=== PATIENT | male | born 1960 | race Caucasian/White ===

== ENCOUNTER 2017-02-20 13:11 | Outpatient (CLI) | payer BC ==
--- NOTE | 2017-02-20 14:47 | RAD ---
EXAM: TWO VIEWS LUMBAR SPINE: HISTORY: Spondylolisthesis of the lumbar region. Status post surgery. Two-week followup. COMPARISON: 01/04/17. FINDINGS: Posterior midline skin cherrie are noted. Redemonstration of bilateral transpedicular screw at L3, L4, L5, and S1. The right S1 screw appears to have been repositioned. Left S1 screw is presumed to be unchanged. Minimal perihardware lucency is noted around the left and right S1 screws. Stable l aminectomy defects. Stable disk prosthesis at L3-L4 and L4-L5. Redemonstration of anterolisthesis of L5 upon S1 measuring 1.0 cm. There are degenerative changes in the thoracolumbar junction. IMPRESSION: 1. Postsurgical changes as above. 2. Stable grade II anterolisthesis of L5 upon S1. POS: [facility]
== END 2017-02-20 13:12 | disposition home or self-care (01) ==
LOC: TBSIIMAG 13:11
PROVIDERS: ATTEND Physician Assistant
DX: M43.17 Spondylolisthesis, lumbosacral region (principal); Z98.890 Other specified postprocedural states
CPT/HCPCS: 72100

== ENCOUNTER 2017-04-04 14:00 | Outpatient (CLI) | payer BC ==
--- NOTE | 2017-04-04 14:36 | RAD ---
2 VIEWS LUMBAR SPINE: Date: 04/04/17 COMPARISON: 02/20/17. CORRELATION: CT lumbar spine dated 01/24/17. HISTORY: Lumbar disc degeneration. FINDINGS: There are bilateral transpedicular screws at L3, L4, L5, and S1. There is lucency involving bilatera l transpedicular screws at S1. There is persistent anterolisthesis of L5 upon S1 of approximately 1. 2 cm. Disc prosthesis at L3-L4 and L4-L5 is noted. Severe loss of disc space height and sclerosis at L5-S1. Laminectomy defects at L4 and L5 noted. IMPRESSION: 1. Stable fusion change. 2. Bilateral perihardware lucency at S1. POS: [facility]
== END 2017-04-04 14:01 | disposition home or self-care (01) ==
LOC: TBSIIMAG 14:00
PROVIDERS: ATTEND Neurological Surgery
DX: M51.36 Other intervertebral disc degeneration, lumbar region (principal); Z98.1 Arthrodesis status
CPT/HCPCS: 72100

== ENCOUNTER 2017-05-17 15:42 | Outpatient (CLI) | payer BC ==
--- NOTE | 2017-05-17 16:10 | RAD ---
EXAM: TWO VIEWS LUMBAR SPINE 05/17/17 COMPARISON: 04/04/17. HISTORY: Followup surgery. FINDINGS: Two views of the lumbar spine redemonstrate stable laminectomy defect at L4 and L5. Stable disc prost hesis at L3-L4, L4-L5. Stable bilateral transpedicular screws at L3, L4, L5 and S1. There is no perih ardware lucency in the screws at L3, L4 and L5. There is stable perihardware lucency involving the sc rews at S1. There is persistent anterolisthesis of L5 upon S1, currently measuring approximately 1.1 cm (previously measuring 1.2 cm). IMPRESSION: No significant change. POS: [facility]
== END 2017-05-17 15:43 | disposition home or self-care (01) ==
LOC: TBSIIMAG 15:42
PROVIDERS: ATTEND Neurological Surgery
DX: M48.061 Spinal stenosis, lumbar region without neurogenic claudication (principal)
CPT/HCPCS: 72100

== ENCOUNTER 2017-07-26 13:57 | Outpatient (CLI) | payer BC ==
--- NOTE | 2017-07-26 14:13 | RAD ---
TWO VIEWS LUMBAR SPINE: Comparison: 05-17-17 History: Follow up from lumbar spine surgery. FINDINGS: Five lumbar type vertebral bodies. Bilateral transpedicular screws at L3, L4, L5 and S1. Disc prosthe sis at L3-4, and L4-5. Stable anterolisthesis of L5 upon S1 (1 cm). Stable bilateral perihardware hillary ency at S1. Stable mild loss of vertebral body height at L1. IMPRESSION: 1. Stable post-surgical change. 2. Stable perihardware lucency involving bilateral transpedicular screws at S1. 3. Stable anterolisthesis of L5 upon S1. POS: [facility]
== END 2017-07-26 13:58 | disposition home or self-care (01) ==
LOC: TBSIIMAG 13:57
PROVIDERS: ATTEND Neurological Surgery
DX: M51.36 Other intervertebral disc degeneration, lumbar region (principal); M43.17 Spondylolisthesis, lumbosacral region; Z98.890 Other specified postprocedural states
CPT/HCPCS: 72100

== ENCOUNTER 2018-02-20 08:42 | Day surgery (SDC) | payer BC ==
[2018-02-19 12:55] VITALS: BMI 33.5
[2018-02-20 10:15] VITALS: BP 138/80; TEMP 97.8
[2018-02-20] MEDS ORDERED: Iopamidol-M 200 41% 20 ML VIAL ONE (11:00)
--- NOTE | 2018-02-20 14:45 | CT ---
CT LUMBAR SPINE WITH CONTRAST: (CT lumbar myelogram) DATE: 02/20/18. HISTORY: A 57-year-old male with low back pain and bilateral lumbar radiculopathy, M54.16. COMPARISON: 01/24/17 CT lumbar myelogram. FINDINGS: There are 5 lumbar-type vertebrae. There is old anterior wedge compression deformity of L1 with appr oximately 20-35% loss of height anteriorly. There are bilateral pedicle screws at L3, L4, L5, and S1 . There are midline laminectomy defects from L3-L4 through L5-S1. There is no evidence of hardware loosening around the screws. T12-L1: Tiny central disk protrusion. No high-grade neural foraminal stenosis or high-grade central spinal stenosis. No interval change. L1-2: Minimal degenerative retrolisthesis of L1 on L2. Mild disk bulge. Conus medullaris terminate s at this level. No high-grade central stenosis or high-grade neural foraminal stenosis. L2-3: A slightly greater degree of degenerative retrolisthesis of L2 on L3 compared to the level sup erior to this. This, together with minimal disk bulge, and moderate ligamentum flavum thickening, re sults in moderate to severe bilateral neural foraminal stenosis and moderate central spinal canal rand nosis. The effacement of the neural foraminal fat is questionably minimally worse than on the previo us CT. L3: The medial aspect of the left L3 pedicle screw traverses the left lateral aspect of the spinal c anal. This is unchanged since the previous CT. L3-4: Interbody cage graft material. No ankylosis between the end plates. No significant disk spac e narrowing. The midline laminectomy defect results in generous caliber of the spinal canal. No rafa ral foraminal stenosis. L4: The bilateral pedicle screws do not traverse the spinal canal. Generous caliber of the spinal c anal and thecal sac. L4-5: Posterior to the wide, decompressive midline laminectomy defect, the bilateral posterior eleme nt onlay bone graft fusion bone chips have grown such that they propagate more posteriorly and medial ly into the bilateral paraspinal musculature and the postsurgical scar tissue there. Thecal sac is g enerous in caliber due to the laminectomy defect. The bony neural foramina are also generous in naty agata. Interbody cage graft material in the disk space. No ankylosis between the end plates. L5-S1: Mild grade I anterolisthesis of L5 on S1 is unchanged. Severe vacuum disk phenomenon. Moder ate disk space narrowing. Thecal sac caliber is generous as a result of the laminectomy defect. The posterior growth propagation of the bilateral onlay bone graft chip fusion continues through this le susan. Although there is no high-grade bony neural foraminal stenosis, the neural foraminal fat is sig nificantly partially effaced bilaterally. It is difficult to determine whether this is due to postsu rgical scar tissue or diffuse disk bulge material, or perhaps a combination of both. No interval karthikeyan nge in the appearance of the neural foramina. IMPRESSION: 1. Status post laminectomies and posterior lumbar interbody fusion at mid lumbar spine through lumbo sacral junction. 2. Interval development of large heterotopic ossifications in the posterior paraspinal spaces, appar ently propagating posteriorly from the bilateral onlay bone chips. 3. High-grade bilateral neural foraminal stenosis at L2-3. 4. Effacement of bilateral neural foraminal fat at L5-S1 perhaps due to a combination of disk bulge and scar tissue. 5. Advanced degenerative disk changes at L5-S1. POS: [facility]
--- NOTE | 2018-02-20 15:18 | RAD ---
MYELOGRAM LUMBAR: DATE: 02/20/18. HISTORY: A 57-year-old male with low back pain and bilateral lumbar radiculopathy. TECHNIQUE: Signed informed consent obtained. Patient placed prone on fluoroscopy table. The skin of the lower back was prepared and draped in the usual sterile fashion. A 25-gauge needle was used to apply buffe red Lidocaine superficially and deeply. A 22-gauge spinal needle was advanced at the L4-5 level. Up on clear brisk return of clear CSF, a total of 10 mL of Isovue-M 200 was injected intrathecally under brief, intermittent fluoroscopy. The needle was removed. The patient tolerated the procedure well. No complications. The patient was taken to CT for CT myelogram. IMPRESSION: 1. Successful lumbar myelogram. 2. See separate report of the CT lumbar myelogram. POS: [facility]
== END 2018-02-20 12:10 | disposition home or self-care (01) ==
LOC: RAD 08:42
PROVIDERS: ATTEND Neurological Surgery
DX: M51.17 Intervertebral disc disorders with radiculopathy, lumbosacral region (principal); M99.83 Other biomechanical lesions of lumbar region
CPT/HCPCS: 62304; 72132

== ENCOUNTER 2018-03-21 13:43 | Outpatient (CLI) | payer BC ==
--- NOTE | 2018-03-21 15:46 | RAD ---
LUMBAR SPINE FOUR VIEWS: Comparison: 07-26-17 History: Spondylolisthesis of the lumbar spine. Low back pain. FINDINGS: AP, lateral, flexion, and extension views of the lumbosacral spine were performed. The patient is sta tus post posterior fusion of L3 through S1 with bilateral pedicle screws. There is grade I to II anterolisthesis of L5 on S1, unchanged. Disc spacers are seen in the L3-4 and L4-5 disc spaces. Alignment is unchanged in flexion and extension. No perihardware lucency is identif ied. IMPRESSION: Post-operative changes of the lumbar spine as above, with spondylolisthesis of L5 on S1. This is unch anged with bending. POS: [facility]
== END 2018-03-21 13:44 | disposition home or self-care (01) ==
LOC: TBSIIMAG 13:43
PROVIDERS: ATTEND Specialist
DX: M43.16 Spondylolisthesis, lumbar region (principal); M47.816 Spondylosis without myelopathy or radiculopathy, lumbar region; M43.17 Spondylolisthesis, lumbosacral region
CPT/HCPCS: 72100; 72110

== ENCOUNTER 2018-06-02 12:14 | Emergency (ER) | payer BC ==
--- NOTE | 2018-06-02 14:07 | RAD ---
FRONTAL RADIOGRAPH CHEST: DATE: 06/02/2018. COMPARISON: 02/12/2015. HISTORY: Fall, trauma, pain. FINDINGS: Rotation to the right and portable technique limit detailed assessment. Heart and mediastinal contou rs are grossly unchanged when compared to a prior chest radiograph performed 02/12/2015 at [facility]. No pneumothorax, pleural fluid, lobar consolidation or alveolar edema. IMPRESSION: No acute findings. POS: [facility]
== END 2018-06-02 13:57 | disposition home or self-care (01) ==
LOC: ERS 12:14
DX: S20.211A Contusion of right front wall of thorax, initial encounter (principal); E11.9 Type 2 diabetes mellitus without complications; E78.5 Hyperlipidemia, unspecified; I10 Essential (primary) hypertension; W18.12XA Fall from or off toilet with subsequent striking against object, initial encounter
CPT/HCPCS: 71045

== ENCOUNTER 2018-08-09 10:53 | Day surgery (SDC) | payer BC ==
[2018-08-08 08:42] VITALS: BMI 33.2
[2018-08-09] MEDS ORDERED: Bupivacaine HCl 0.5%/Epinephrine 1:200,000/PF 30 ml Vial ONE (11:57)
[2018-08-09] MEDS ORDERED: Propofol 500 MG/50 ML VIAL ONE (12:05)
[2018-08-09] MEDS ORDERED: Fentanyl 100 MCG/2 ML VIAL ONE ×2 (12:05→14:10)
[2018-08-09] MEDS ORDERED: CEFAZOLIN 1 GM VIAL ONE (12:14)
[2018-08-09] MEDS ORDERED: Sodium Chloride 0.9% 100 ML ONE (12:14)
[2018-08-09 12:21] LABS: Anion Gap 12 mmol/L (10-20); BUN (Urea Nitrogen) 17 mg/dL (8.4-25.7); Calc. Creatinine Clearance 169 mL/min (70-130); Calcium 9.5 mg/dL (7.8-10.44); Carbon Dioxide 29 mmol/L (22-29); Chloride 101 mmol/L (98-107); Estimated GFR-MDRD Greater than 90; Glucose 124 mg/dL (70-105); Potassium 4.4 mmol/L (3.5-5.1); Sodium 138 mmol/L (136-145)
[2018-08-09] MEDS ORDERED: PROPOFOL 20 ML ONE ×2 (13:57→14:23)
--- NOTE | 2018-08-09 18:00 | RAD ---
THORACIC SPINE ONE VIEW: 08/09/18 HISTORY: Pain stimulator. COMPARISON: None. FINDINGS: There is a single spot fluoroscopic image which demonstrates a stimulator lead projecting over the sp ine. IMPRESSION: Fluoroscopy for surgical use. POS: [facility]
--- NOTE | 2018-08-10 03:53 | OP ---
DATE OF PROCEDURE: 08/09/2018 DIAGNOSES: 1. Post-laminectomy syndrome. 2. Chronic pain syndrome. 3. Lumbar radiculopathy. PROCEDURES PERFORMED: 1. Spinal cord stimulator generator implant. 2. Spinal cord stimulator lead implant x2. 3. Fluoroscopy. 4. Programming. ESTIMATED BLOOD LOSS: 5 mL. SUMMARY OF PROCEDURE: The patient was taken to the procedure room and placed prone on the procedure room table. A time-out was performed using ChloraPrep. The back was prepped, and sterile drapes were applied. We located the interspace of T12-L1 under fluoroscopy and anesthetized the skin over this with 0.5% Marcaine with epinephrine. We made a vertical incision and blunt dissected this down to fascia. We then used a supplied 14-gauge Touhy needle and advanced it in a paramedian technique to engage in the ligament of T12-L1. Loss of resistance to air was performed to gain access to the epidural space. There was negative aspiration for heme or CSF. We then threaded an 8-contact lead up the midline dorsal epidural space under continuous fluoroscopy . We placed a contralateral lead in the exact same fashion using the exact same technique on the other side to place two parallel electrodes. Stimulation was performed with the patient awake and the patient noted paresthesia in all pain areas. Nikolski were then removed taking care not to move the leads. Anchors were placed over the leads and clicked down to anchor them to the lead. These were then sutured to the fascia using 2-0 silk suture x2. The skin above the buttock was anesthetized with Marcaine 0.5% with epinephrine, and incision was made with a scalpel and blunt dissected down to Vamshi fascia. We then dissected this inferiorly and superiorly to create a pocket. A tunneling device was used to create a tunnel between the two pockets. The leads were placed through the tunneling device and advanced to the battery pocket. These were connected to the battery and torqued down. Impedances were checked, which were all good. The battery was placed in the pocket. We approximated both incisions using 2-0 Vicryl suture in simple interrupted fashion. We then approximated the skin layer using a 3-0 Vicryl repeat suture in a subcuticular stitch. We then occluded the wound with Dermabond and placed a sterile 4 x 4 dressing over it with tape on it. Once this was dried, the patient was taken to PACU in a stable condition without any apparent complications noted at this time. Job ID: [id number]
--- NOTE | 2018-08-10 16:42 | EKG ---
Test Reason : PREOP Blood Pressure : / mmHG Vent. Rate : 064 BPM Atrial Rate : 064 BPM P-R Int : 172 ms QRS Dur : 078 ms QT Int : 408 ms P-R-T Axes : -02 -12 017 degrees QTc Int : 420 ms Normal sinus rhythm Normal ECG When compared with ECG of 31-JAN-2017 09:56, No significant change was found Confirmed by DR. Román DE ([id number]) on 08/10/2018 4:42:42 PM Referred By: SRI Confirmed By:DR. Román DE
== END 2018-08-09 15:35 | disposition home or self-care (01) ==
LOC: SDC 10:53
PROVIDERS: ATTEND Specialist
PROC: 00HU3MZ Insertion of Neurostimulator Lead into Spinal Canal, Percutaneous Approach (ICD-10-PCS; principal; 2018-08-09)
PROC: 0JH70DZ Insertion of Multiple Array Stimulator Generator into Back Subcutaneous Tissue and Fascia, Open Approach (ICD-10-PCS; principal; 2018-08-09)
DX: M96.1 Postlaminectomy syndrome, not elsewhere classified (principal); G89.4 Chronic pain syndrome; M51.16 Intervertebral disc disorders with radiculopathy, lumbar region; M48.062 Spinal stenosis, lumbar region with neurogenic claudication; M43.16 Spondylolisthesis, lumbar region; I10 Essential (primary) hypertension; G47.33 Obstructive sleep apnea (adult) (pediatric); E78.5 Hyperlipidemia, unspecified; K21.9 Gastro-esophageal reflux disease without esophagitis; E11.9 Type 2 diabetes mellitus without complications; Z79.84 Long term (current) use of oral hypoglycemic drugs; Z79.899 Other long term (current) drug therapy; Z88.1 Allergy status to other antibiotic agents; Z91.048 Other nonmedicinal substance allergy status
CPT/HCPCS: 72020; 76000; 80048; 93005; 93010; C1767; J0670; J0690; J2704; J3010; J7050

== ENCOUNTER 2019-08-21 07:57 | Outpatient (CLI) | payer BC ==
--- NOTE | 2019-08-21 10:27 | CT ---
EXAM: CT Thoracic Spine WO Con PROVIDED CLINICAL HISTORY: Back pain COMPARISON: None FINDINGS: Sagittal thoracic alignment appears normal. Vertebral body heights appear preserved. Multilevel disc space narrowing and endplate degenerative change, most conspicuously from T7-8 through T12-L1. Vertebral body heights appear preserved. No concerning lytic or blastic lesions are seen. Dorsal colu mn stimulator device is noted, the tips of which terminate at the dorsal aspect of the spinal canal at the level of the inferior endplate of T6. There is no significant central canal or foraminal narrowing apparent from T1-2 through T7-8. At T8-9, there is mild bilateral foraminal narrowing on the basis of facet arthritis and costovertebr al joint hypertrophy. There is no significant central canal stenosis apparent. At T9-10, there is a broad-based disc osteophyte complex which effaces the ventral subarachnoid space . There is no significant left foraminal narrowing apparent. There is at least moderate right foraminal narrowing due to disc bulge and facet arthrosis. At T10-11, there is moderate foraminal narrowing on the basis of facet arthritis. No significant cent ral canal or right foraminal narrowing apparent. At T11-12, there is moderate left foraminal narrowing on the basis of facet arthritis. No significant right foraminal narrowing apparent. There is a gas containing left subarticular disc herniation with effacement of the left ventrolateral spinal canal. At T12-L1, there is no significant central canal or foraminal narrowing apparent. IMPRESSION: Multilevel thoracic degenerative change as described.
--- NOTE | 2019-08-21 10:38 | CT ---
EXAM: CT Lumbar Spine WO Con PROVIDED CLINICAL HISTORY: Spondylolisthesis COMPARISON: CT myelogram 02/20/2018 FINDINGS: 5 lumbar vertebral bodies are again assumed. Slight retrolisthesis of L2 on L3 is redemonstrated. Sag ittal lumbar alignment appears otherwise normal. Vertebral body heights appear preserved. No concerning lytic or blastic lesions are evident. Postoperative changes appear stable, including bilat eral pedicle screws and vertical interconnecting rods spanning L3-S1 with intervening intervertebral disc devices at L3-4 and L4-5. There is no evidence for hardware loosening or migratio n. The visualized extraspinal soft tissues appear unremarkable with the exception of vascular calcification. At L1-2, there is disc space height loss and vacuum disc phenomena with broad-based disc bulge. There is no significant central canal or foraminal narrowing apparent. At L2-3, vacuum disc phenomenon and loss of intervertebral disc space height are now noted. Broad-bas ed disc bulge and ligamentum flavum hypertrophy produce potential for at least moderate central canal narrowing. There is severe bilateral foraminal stenosis. At L3-4, there is no significant central canal or foraminal narrowing apparent. At L4-5, there is no significant central canal or foraminal narrowing apparent. At L5-S1, vacuum disc phenomenon is noted. Endplate degenerative changes and a broad-based disc bulge are seen. Moderate-severe right foraminal narrowing. No significant central canal or left foraminal narrowing apparent. IMPRESSION: 1. Stable postoperative changes involving the mid to lower lumbar spine. 2. Interval progression of disc degenerative change at L2-3 with development of severe bilateral fora eduardo narrowing and at least moderate central canal stenosis.
== END 2019-08-21 07:58 | disposition home or self-care (01) ==
LOC: MRI 07:57
PROVIDERS: ATTEND Orthopaedic Surgery
DX: M43.16 Spondylolisthesis, lumbar region (principal); M51.36 Other intervertebral disc degeneration, lumbar region; M48.061 Spinal stenosis, lumbar region without neurogenic claudication
CPT/HCPCS: 72128; 72131

== ENCOUNTER 2019-09-17 08:06 | Outpatient (CLI) | payer BC ==
--- NOTE | 2019-09-17 10:53 | MRI ---
MRI CERVICAL SPINE WITHOUT CONTRAST: HISTORY: Spondylolisthesis. Pain.. COMPARISON: 02/17/2014. FINDINGS: Limited evaluation on multiple sequences due to motion degradation. Appropriate T1 marrow signal intensity of the cervical vertebrae. Cervical spine vertebral body heigh ts are maintained. There is no fracture. Appropriate T1 marrow signal intensity of the cervical vertebrae. No significant STIR hyperintensity to suggest vertebral body edema or ligamentous injury. Spondylolisthesis: C2-C3: 2.4 mm of anterolisthesis. C3-C4: 2.6 mm of anterolisthesis. C6-C7: 1.7 mm of retrolisthesis. Visualized brain parenchyma, cervicomedullary junction, cervical cord and the upper thoracic cord hav e a normal size and signal intensity. C2-C3: Disc desiccation. No significant posterior disc abnormality. No significant central canal sten osis or significant neural foraminal narrowing. C3-C4: Disc desiccation. Minimal central disc herniation. No significant central canal stenosis or si gnificant neural foraminal narrowing. C4-C5: Disk desiccation. No significant posterior disc abnormality. No significant central canal sten osis or significant neural foraminal narrowing. C5-C6: Desiccation with moderate loss of disc space height. Disc-osteophyte complex does cause mass e ffect upon the thecal sac. There is deformity the cervical cord. Moderate central canal stenosis. No cord signal abnormality. Mild right and moderate left foraminal narrowing due to uncovertebral hyp ertrophy. C6-C7: Desiccation with moderate loss of disc space height. Broad-based disc-osteophyte complex with a small right paracentral component. Mild central canal stenosis. Mild bilateral foraminal narrowing due to uncovertebral hypertrophy. C7-T1: Desiccation with mild loss of disc space height. Broad-based disc bulge, ligament flavum thick ening and facet hypertrophy result in mild to moderate central canal stenosis. Moderate to severe right and moderate left foraminal narrowing. IMPRESSION: 1. Minimal disc desiccation at C2-C3, C3-C4 and C4-C5 without significant loss of disc space height o r significant central canal stenosis. 2. Moderate central canal stenosis at C5-C6, mild central canal stenosis at C6-C7 and mild to moderat e central canal stenosis at C7-T1. There is associated significant neural foraminal narrowing as detailed above. Transcribed Date/Time: 09/17/2019 12:52 PM
--- NOTE | 2019-09-17 11:08 | MRI ---
THORACIC SPINE MRI WITHOUT CONTRAST: HISTORY: Spinal listhesis of the lumbar region. COMPARISON: None. CORRELATION: Thoracic spine CT 08/21/2019. FINDINGS: Appropriate T1 marrow signal intensity of the thoracic vertebrae. Thoracic spine vertebral body heigh t is maintained. There is no fracture. There are type II Modic changes at T8-T9, T9-T10, T10-T11. Minimal Schmorl's nodes along the endplates of these aforementioned levels is identified. The heart does appear to be enlarged. There appears to be circumferential mucosal thickening in the v isualized mid thoracic esophagus, incompletely evaluated. Visualized lung parenchyma has a normal appearance. Appropriate signal intensity of the visualized solid organs. Limited evaluation of the central spinal canal due to metallic susceptibility artifact involving the mid thoracic spine from dorsal column stimulator. Visualized thoracic cord has a normal size and signal intensity. No cord expansion. No cord malacia. Metallic susceptibly artifact does limit evaluation of the central spinal canal. Neural foramina: T8-T9: Moderate right neural foraminal narrowing. Mild left neural foraminal narrowing. T9-T10: Moderate bilateral neural foraminal narrowing. T10-T11: Patent right neural foramen. Severe left neural foraminal narrowing. T11-T12: Mild right neural foraminal narrowing. Severe left neural foraminal narrowing throughout the remaining thoracic spine, the neural foramina appear to be patent. T1-T2 through T7-T8: No evidence of significant central canal stenosis. T8-T9: Desiccation with severe loss of disc space height. Broad-based disc bulge, facet hypertrophy m ay result in at least mild central canal stenosis, predominantly based upon the sagittal images. Metallic susceptibly artifact limits evaluation on the axial images. T9-T10: Disc desiccation with moderate loss of disc space height and osteophyte formation results in at least moderate to severe central canal stenosis. Metallic susceptibility artifact limits evaluation. T10-T11: Disc desiccation with moderate to severe loss of disc space height. Broad-based disc bulge r esults in moderate to severe central canal stenosis.. T11-T12: Disc desiccation with at least mild central canal stenosis. IMPRESSION: Limited evaluation of the central spinal canal due to metallic susceptibility artifact from dorsal co lumn stimulator. There does appear to be significant central canal stenosis in the mid thoracic spine. The degree of stenosis appears be accentuated due to metallic susceptibly artifact. Correlatio n is made with CT performed 08/21/2019 does not demonstrate a significant central canal stenosis. However, there does appear to be neural foraminal narrowing which is better demonstrated on the previ ous CT. Transcribed Date/Time: 09/17/2019 12:59 PM
--- NOTE | 2019-09-17 11:09 | MRI ---
MRI LUMBAR SPINE NONCONTRAST: DATE: 09/17/2019 HISTORY: 59-year-old male with low back pain and ICD-10: "M 13.16 spondylolisthesis of lumbar region" COMPARISON: 01/08/2015 FINDINGS: Distended urinary bladder. Mild anterior wedge compression loss of height of L1, old, but occurred so metime after the prior MRI of 2014. Conus medullaris terminates at upper L2 level. In addition to the previously demonstrated bilateral pedicle screws at L4 and L5, there are now addit ional pedicle screws at L3 and S1 bilaterally. New since prior study, dorsal column stimulator leads enter the spinal canal between the spinous proc esses of T12-L1, and ascend. The magnetic susceptibility artifact created by the leads results in poor evaluation of the contents of the spinal canal superior to this level. T12-L1:No high-grade central or high-grade right neural foraminal stenosis identified, but there is p oor visualization of left neural foramen due to artifact. L1-2:Mild disc bulge. Minimal retrolisthesis of L1 on L2. New mild disc space narrowing. No high-grad e central stenosis or high-grade neural foraminal stenosis. L2-3:New moderate retrolisthesis of L2 on L3. Minimal disc space narrowing. The retrolisthesis causes a new finding of moderate central spinal canal stenosis, severe right neural foraminal stenosis, and moderate to severe left neural foraminal stenosis. L3-4:New interbody cage at the disc space. Possible revision of previous midline laminectomy results in even wider caliber of spinal canal and thecal sac now, generous caliber. No high-grade bony neural foraminal stenosis.. L4-5:Again noted is the midline decompressive laminectomy defect, resulting in generous caliber of sp inal canal and thecal sac. New interbody cage. New mild disc space narrowing. No high-grade bony neural foraminal stenosis identified. L5-S1:New grade 1 anterolisthesis of L5 on S1. New moderate disc space narrowing. Degenerative endpla te changes. Small central disc extrusion with superior migration at midline to the pedicle level of L5. Worsening of bilateral neural foraminal stenosis, currently moderate again noted is the old midli ne laminectomy defect. Generous caliber of spinal canal and thecal sac. IMPRESSION: 1. High-grade lumbar spondylosis, with interval worsening of multilevel degenerative disc disease sin ce 01/08/2015. 2. Decompressive midline laminectomies at L3-4, L4-5, and L5-S1. 3. In addition to the pre-existing bilateral pedicle screws at L4 and L5, there are new or right late ral pedicle screws at L3 and S1. 4. New grade 1 spondylolisthesis at L5-S1. 5. New prominent grade 1 degenerative retrolisthesis of L2 on L3, resulting in severe right L2-3 neur al foraminal stenosis and moderate to severe left neural foraminal stenosis; and high-grade central spinal canal stenosis. 6. New dorsal column spinal cord stimulator leads entering spinal canal at T12-L1, and ascending the thoracic spine..
== END 2019-09-17 08:07 | disposition home or self-care (01) ==
LOC: MRI 08:06
PROVIDERS: ATTEND Orthopaedic Surgery
DX: M43.16 Spondylolisthesis, lumbar region (principal); M47.816 Spondylosis without myelopathy or radiculopathy, lumbar region; M51.36 Other intervertebral disc degeneration, lumbar region; M48.061 Spinal stenosis, lumbar region without neurogenic claudication; M43.17 Spondylolisthesis, lumbosacral region; M48.02 Spinal stenosis, cervical region; M48.03 Spinal stenosis, cervicothoracic region; Z98.890 Other specified postprocedural states
CPT/HCPCS: 72141; 72146; 72148